=== PATIENT | male | born 1985 | race Caucasian/White ===

== ENCOUNTER 2024-08-25 22:23 | Emergency (ER) | payer SELFPAY ==
[~2024-08-25] VITALS: Ht 180.3 cm; Wt 100.0 kg
[2024-08-25 22:37] VITALS: O2SAT 99
[2024-08-25 22:38] VITALS: BP 139/90; PULSE 100; RESP 18; TEMP 98.5; O2SAT 98
[2024-08-25] MEDS ORDERED: AMOX1TAB16 MT (22:41)
[2024-08-25] MEDS ORDERED: IBUP-2029 MT (22:41)
== END 2024-08-25 23:12 | disposition home or self-care (01) ==
LOC: ER 22:23
DX: K08.89 Other specified disorders of teeth and supporting structures (principal)
CPT/HCPCS: 99283

== ENCOUNTER 2024-10-31 00:03 | Emergency (ER) | payer MEDICAID ==
[~2024-10-31] VITALS: Ht 180.3 cm; Wt 99.0 kg
[~2024-10-31 00:03] MED LIST: AMOX1TAB16 MT; IBUP-2029 MT
[2024-10-31 00:54] VITALS: BP 143/83; PULSE 104; RESP 18; TEMP 97.8; O2SAT 97
[2024-10-31 01:22] LABS: EOSINOPHILS % 3.2 % (0.0-5.0); RED CELL DISTRIBUTION WIDTH 13.4 % (11.6-14.6)
[2024-10-31 01:29] LABS: BASOPHILS % 0.7 % (0.0-2.0); DIFFERENTIAL COMMENT 0; HEMATOCRIT. 44.8 % (42.0-52.0); HEMOGLOBIN. 15.2 g/dL (14.0-18.0); LYMPHOCYTES % 30.9 % (20.0-50.0); MEAN CORPUSCULAR HEMOGLOBIN 35.9 pg (28.0-32.0); MEAN CORPUSCULAR HGB CONC 33.8 g/dL (31.0-37.0); MEAN CORPUSCULAR VOLUME 106.2 fL (80.0-94.0); MONOCYTES % 8.9 % (2.0-8.0); NEUTROPHILS % 56.3 % (40.0-76.0); PLATELET 239 x1000/uL (130-400); RED BLOOD CELL COUNT 4.22 mill/uL (4.7-6.1); WHITE BLOOD COUNT 8.1 x1000/uL (4.5-11.0)
[2024-10-31 01:30] LABS: CHLORIDE 102 mEq/L (98-107); SODIUM 137 mEq/L (136-145)
[2024-10-31 01:31] LABS: CARBON DIOXIDE 30 mEq/L (21-32)
[2024-10-31 01:32] LABS: CALCIUM 9.7 mg/dL (8.7-10.4)
[2024-10-31 01:37] LABS: GLUCOSE 92 mg/dL (70-105); UREA NITROGEN BLOOD 12 mg/dL (9-23)
[2024-10-31] MEDS ORDERED: IBUP-2029 MT (02:57)
[2024-10-31] MEDS ORDERED: SULF1TAB48 MT (02:57)
[2024-10-31] MEDS ORDERED: CEPH500C2 MT (02:57)
== END 2024-10-31 03:20 | disposition home or self-care (01) ==
LOC: ER 00:03
DX: L03.116 Cellulitis of left lower limb (principal); Z98.890 Other specified postprocedural states
CPT/HCPCS: 36415; 80048; 85025; 99283